=== PATIENT | female | born 1955 | race Caucasian/White ===

== ENCOUNTER 2019-01-18 14:50 | Outpatient (CLI) | payer OTHER, SELFPAY ==
[2019-01-18 15:48] LABS: Hemoglobin A1C 9.5 % (4.5-6.2)
== END 2019-01-18 15:10 ==
PROVIDERS: PCP Neuromusculoskeletal Medicine & OMM; Visit Provider Neuromusculoskeletal Medicine & OMM
DX: E11.9 Type 2 diabetes mellitus without complications (principal)
CPT/HCPCS: 36415; 83036

== ENCOUNTER 2019-12-27 12:57 | Outpatient (CLI) | payer OTHER, SELFPAY ==
[2019-12-27 17:01] LABS: Hemoglobin A1C 11.1 % (3.8-5.6)
== END 2019-12-27 13:17 ==
PROVIDERS: PCP Neuromusculoskeletal Medicine & OMM; Visit Provider Neuromusculoskeletal Medicine & OMM
DX: E11.9 Type 2 diabetes mellitus without complications (principal)
CPT/HCPCS: 36415; 83036

== ENCOUNTER 2023-02-04 16:03 | Outpatient (REF) | payer OTHER, SELFPAY ==
--- NOTE | 2023-02-04 16:20 | PAPFT_PTH ---
PATIENT: Cassandra Vargas LOC: [facility] U#:[id number] AGE/SX: 67/F ROOM: RE02/04/[address]: Beena Saldaña MD : 1955 BED: DIS: 02/04/2023 SPEC #: [id number] RECD: 02/04/23 18:10 STATUS: PATTY REQ #: [id number] COLLIN: 02/04/23 16:[address]: Beena Saldaña DEPT: [facility] Cytology RECD BY: Joselyn Gracia ENTERED: 02/04/23 18:11 SP TYPE: PAPFT OTHR DR: Eric Lao Tissues: 1 - CX/ENDOCX FOR PAP SMEARS Procedures: PAP THIN PREP/UVM Screening HPV DNA PROBE Comments: [id number]
== END 2023-02-04 16:04 | disposition home or self-care (01) ==
LOC: LBN 16:03
PROVIDERS: PCP Neuromusculoskeletal Medicine & OMM; Visit Provider Obstetrics & Gynecology
DX: Z12.4 Encounter for screening for malignant neoplasm of cervix (principal); Z11.51 Encounter for screening for human papillomavirus (HPV)
CPT/HCPCS: 88142; 87624

== ENCOUNTER 2023-02-26 01:16 | Outpatient (CLI) | payer OTHER, SELFPAY ==
--- NOTE | 2023-02-26 13:02 | DI.MAMMO_ITS ---
Exam(s) MAMMO SCREENING EXAM: MAMMO SCREENING CLINICAL HISTORY: screening,z12.39 TECHNIQUE: Mammograms were interpreted according to the usual protocol including computer analysis w [employer] CAD system, tomosynthesis and C-view imaging. COMPARISON: 2012 FINDINGS: The breasts are composed of mainly fatty density , Breast Density category A. No suspicious masses or suspicious microcalcifications are seen. No skin thickening or abnormal axillary lymph nodes are seen. There has been no significant change from prior exams. IMPRESSION: BI-RADS Category 1, Negative mammogram Yearly screening mammography is recommended. Breast Density - Category A, fatty density. A negative radiographic report should not delay biopsy if a dominant or clinically suspicious mass is present. Up to ten percent of cancers are not identified on mammography. A negative report may reinforce clinical impression. Adenosis and dense breasts may obscure an underlying neoplasm. False positive reports average 6 to 10%. Patient will receive a letter notifying them of these results.
== END 2023-02-26 01:36 ==
PROVIDERS: PCP Neuromusculoskeletal Medicine & OMM; Visit Provider Obstetrics & Gynecology
DX: Z12.31 Encounter for screening mammogram for malignant neoplasm of breast (principal)
CPT/HCPCS: 77063; 77067

== ENCOUNTER 2023-07-04 15:06 | Outpatient (REF) | payer OTHER, MEDICARE, SELFPAY | END 2023-07-04 15:07 | disposition home or self-care (01) | LOC: LBN 15:06 | PROVIDERS: PCP Neuromusculoskeletal Medicine & OMM; Visit Provider Obstetrics & Gynecology | DX: N90.89 Other specified noninflammatory disorders of vulva and perineum (principal) | CPT/HCPCS: 87480; 87510; 87660 ==

== ENCOUNTER → 2024-04-28 00:36 | Outpatient (CLI) | payer OTHER, SELFPAY ==
--- NOTE | 2024-04-28 | DI.RAD_ITS ---
Exam(s) XR KNEE RT 4V AP,LAT,BRIANNA,PAT EXAM: XR KNEE RT 4V AP,LAT,BRIANNA,PAT CLINICAL HISTORY: Rt knee pain, M25.561. TECHNIQUE: 2D digital imaging was performed. Three views. COMPARISON: No exams were available for comparison FINDINGS: BONES: No acute fracture is present. No bony destructive lesion is seen. JOINTS: The knee is normally aligned. No joint effusion is seen. Severe narrowing of the lateral pa tellofemoral joint space. periarticular spurring. Femoral tibial joint spaces are maintained and s how mild periarticular spurring.. SOFT TISSUE: Normal. IMPRESSION: Unremarkable advanced degenerative changes of the lateral patellofemoral joint. DATA REPOSITORY: RADIATION DOSE DELIVERED:
== END ==
PROVIDERS: PCP Neuromusculoskeletal Medicine & OMM; Visit Provider Neuromusculoskeletal Medicine & OMM
DX: M25.561 Pain in right knee (principal)
CPT/HCPCS: 73564

== ENCOUNTER 2024-05-13 15:49 | Outpatient (REF) | payer OTHER, SELFPAY ==
--- NOTE | 2024-05-13 15:30 | ENDOMET_PTH ---
PATIENT: Cassandra Vargas LOC: [facility] U#:[id number] AGE/SX: 68/F ROOM: RE05/13/[address]: Jewell Barton DO : 1955 BED: DIS: 05/13/2024 SPEC #: [id number] RECD: 05/13/24 17:25 STATUS: PATTY REQ #: [id number] COLLIN: 05/13/24 15:[address]: Jewell Barton DEPT: Surgical Specimen RECD BY: Joselyn Gracia ENTERED: 05/13/24 17:26 SP TYPE: Endomet OTHR DR: Eric Lao Tissues: 1 - ENDOMETRIUM BX/KATHERINE Procedures: GROSS AND MICRO LEVEL 4 Comments: [id number]
== END 2024-05-13 15:50 | disposition home or self-care (01) ==
LOC: LBN 15:49
PROVIDERS: PCP Neuromusculoskeletal Medicine & OMM; Visit Provider Obstetrics & Gynecology
DX: N95.0 Postmenopausal bleeding (principal)
CPT/HCPCS: 88305

== ENCOUNTER 2024-10-08 00:23 | Outpatient (CLI) | payer BC, SELFPAY ==
--- NOTE | 2024-10-08 12:15 | DI.MAMMO_ITS ---
Exam(s) MAMMO SCREENING EXAM: MAMMO SCREENING CLINICAL HISTORY: screening TECHNIQUE: Bilateral full field digital CC and MLO mammographic images were obtained with 3D tomosyn thesis and utilizing computer aided detection (CAD). COMPARISON: Available for comparison. FINDINGS: Masses/Architectural Distortion: There has been interval increase in size of the nodule seen in the u pper inner quadrant of the right breast. The borders are irregular. It measures 7 mm in maximum melissa meter. No suspicious masses are seen in the left breast. The nodule in the retroareolar region of t he left breast appears stable. Microcalcifications: No suspicious pleomorphic-type are seen. Skin Thickening/Nipple Retraction: None. IMPRESSION: 1. Interval increase in size and irregularity of the nodule in the upper inner quadrant of the right breast. 2. Spot compression views and a right breast ultrasound are requested for further evaluation. BI-RADS Category 0 - Incomplete: Need additional imaging evaluation Breast Density - Category B - Scattered areas of fibroglandular density Breast density category C or D implies that the patient has dense breast tissue. Dense breast tissue is very common and is not abnormal but dense breast tissue can make it harder to find cancer on a ma mmogram. Also, dense breast tissue may increase their breast cancer risk. This information about the result of the mammogram report was provided to the patient to raise their awareness. Use this report when you speak with the patient about their risks for breast cancer, which includes their family hist ory. At that time, you may recommend for more screening tests (Ultrasound or MRI) as they might be us eful based on their risk. A negative radiographic report should not delay biopsy if a dominant or clinically suspicious mass is present. Up to ten percent of cancers are not identified on mammography. A negative report may reinforce clinical impression. Adenosis and dense breasts may obscure an underlying neoplasm. False positive reports average 6 to 10%. Patient will receive a letter notifying them of these results.
== END 2024-10-08 00:43 ==
PROVIDERS: PCP Neuromusculoskeletal Medicine & OMM; Visit Provider Obstetrics & Gynecology
DX: Z12.31 Encounter for screening mammogram for malignant neoplasm of breast (principal); R92.323 Mammographic fibroglandular density, bilateral breasts
CPT/HCPCS: 77063; 77067

== ENCOUNTER 2024-10-18 01:55 | Outpatient (CLI) | payer BC, SELFPAY ==
--- NOTE | 2024-10-18 | DI.MAMMO_ITS ---
Exam(s) MG MAMMO SCREEN CALL BACK UNI US BREAST RT COMPLETE EXAM: MG MAMMO SCREEN CALL BACK UNI RIGHT AND COMPLETE RIGHT BREAST ULTRASOUND CLINICAL HISTORY: F/U ABNL MAMMO, INT INC IRREGULARITY OF NODULE UIQ RT BREAST. TECHNIQUE: Unilateral RIGHT BREAST spot mammographic images obtained with 3D tomosynthesisand utiliz ing computer aided detection (CAD). . Complete RIGHT breast Ultrasound was also performed, including all 4 quadrants, the retroareolar madyson on, and the ipsilateral axilla. COMPARISON: Prior mammograms were reviewed. This additional imaging was performed due to findings described on the recent screening mammogram of 10/08/2024. FINDINGS: DIAGNOSTIC MAMMOGRAM: Additional mammographic views performed todaydo not dissipate this nodule but reveal a notch therein, indicating that it is most probably a benign intramammary lymph node. COMPLETE RIGHT BREAST ULTRASOUND: Ultrasound performed today reveals no evidence of solid or significant cystic lesions in all 4 quadra nts.. This implies that the finding mammogram is most probably benign intramammary lymph node. Scanning of the ipsilateral axilla reveals no significant adenopathy. IMPRESSION: 1. Benign-appearing right breast nodule which is probably a benign intramammary lymph node. 2. Negative complete right breast ultrasound which is further evidence that this is most probably a benign intramammary lymph node. Appropriate follow-up as discussed by myself with the patient today is repeat right breast mammogram in 6 months to ensure stability.. The patient was informed of these findings and recommendations by myself prior to leaving the departm ent today. BI-RADS Category 3 - 6 month - Probably Benign Finding: Recommend follow-up mammography in 6 months Breast Density - Category B - Scattered areas of fibroglandular density Breast density Category C or D implies that the patient has dense breast tissue. Dense breast tissue can make it harder to find cancer on a mammogram. Dense breast tissue is also associated with an incr eased risk of breast cancer. This information about the result of the mammogram report was provided to the patient to raise their awareness. Use this report when you speak with the patient about their risks for breast cancer, which includes their family history. At that time, you may recommend additional screening tests (Ultrasoun d or MRI) as these tests may add significant information. A negative radiographic report should not delay biopsy if a dominant or clinically suspicious mass is present. Up to ten percent of cancers are not identified on mammography. A negative report may reinforce clinical impression. Adenosis and dense breasts may obscure an underlying neoplasm. False positive reports average 6 to 10%. Patient will receive a letter notifying them of these results.
== END 2024-10-18 02:15 ==
PROVIDERS: PCP Neuromusculoskeletal Medicine & OMM; Visit Provider Obstetrics & Gynecology
DX: Z12.31 Encounter for screening mammogram for malignant neoplasm of breast (principal); R92.323 Mammographic fibroglandular density, bilateral breasts; D24.1 Benign neoplasm of right breast
CPT/HCPCS: 76642; 77063; 77067

== ENCOUNTER 2025-04-15 12:57 | Outpatient (CLI) | payer BC, SELFPAY ==
--- NOTE | 2025-04-15 13:16 | DI.RAD_ITS ---
Exam(s) XR RIBS RT W PA LAT CHEST CLINICAL HISTORY: PLEURODYNIA R07.81 FALL W19.XXXA TRAUMATIC FALL RT RIB PAIN RIBS 4-8 R/O FX. COMPARISON: No exams were available for comparison TECHNIQUE:: PA and lateral views of the chest and four views of the right ribs were performed. FINDINGS: LUNGS:Clear. No pleural abnormality seen. HEART: Normal size. MEDIASTINUM: Normal. BONES: No displaced rib fracture is seen. No bony destructive lesion is seen. IMPRESSION: 1. Unremarkable radiographic appearance of the right ribs. 2. No acute pulmonary findings.
== END 2025-04-15 13:17 ==
PROVIDERS: PCP Neuromusculoskeletal Medicine & OMM; Visit Provider Neuromusculoskeletal Medicine & OMM
DX: R07.81 Pleurodynia (principal); W19.XXXA Unspecified fall, initial encounter
CPT/HCPCS: 71046; 71100

== ENCOUNTER 2025-04-25 03:00 | Outpatient (CLI) | payer BC, SELFPAY ==
--- NOTE | 2025-04-25 | DI.US_ITS ---
Exam(s) MG MAMMO DIAGNOSTIC UNI US BREAST RT COMPLETE EXAM: MG MAMMO DIAGNOSTIC UNI RIGHT AND COMPLETE RIGHT BREAST ULTRA CLINICAL HISTORY: 6 mo f/u, abnl mammo rt breast, R92.8,? benign intramammary lymph node. TECHNIQUE: Unilateral RIGHT BREAST CC AND MLO AND SPOT mammographic images were obtained with 3D tomosynthesis technique and utilizing computer aided detection (CAD). COMPLETE RIGHT BREAST ULTRASOUND performed including all 4 quadrants as well as the axillary region. COMPARISON: Prior mammograms were reviewed, the most recent being September 2024. Prior ultrasound at that time was also reviewed.. FINDINGS: The previously described small nodule in the upper inner quadrant of the right breast exhibits minimal if any significant change in size when compared to the September 2024 mammogram. There are no new additional right breast nodules and there are no malignant-appearing microcalcification groups in the right breast. There is no new architectural distortion or skin thickening-retraction. COMPLETE RIGHT BREAST ULTRASOUND: At the 12 o'clock position there is a 3 millimeter finding which is probably small hemorrhagic cyst. At the 1 o'clock position there is a slightly lobulated nodule which measures 7 x 5 mm and most probably corresponds to the finding on the mammogram. This does not have the appearance of a typical benign intramammary lymph node. Biopsy recommended. There are no other focal ultrasound findings in all 4 quadrants. Scanning of the right axilla is negative for significant adenopathy. IMPRESSION: There is a 7 x 5 mm nodule at the 1 o'clock position of the right breast seen on ultrasound which corresponds to the finding on the mammogram. This does not have the appearance of a in obvious benign intramammary lymph node. Therefore ultrasound-guided core biopsy is recommended. There is a 2nd smaller nodules seen only on the ultrasound at the 12 o'clock position measuring 3 mm which is probably a small hemorrhagic cyst. This is not seen on the mammogram. The patient was informed of the findings and follow-up recommendations by myself prior to leaving the department today. Report and recommendations called by myself to Dr. Duarte 04/25/2025 at 10:40 a.m.. BI-RADS Category 4 - Suspicious Abnormality: Biopsy should be considered Breast Density - Category B - There are scattered areas of fibroglandular density. Breast density Category C or D implies that the patient has dense breast tissue. Dense breast tissue can make it harder to find cancer on a mammogram. Dense breast tissue is also associated with an increased risk of breast cancer. This information about the result of the mammogram report was provided to the patient to raise their awareness. Use this report when you speak with the patient about their risks for breast cancer, which includes their family history. At that time, you may recommend additional screening tests (Ultrasound or MRI) as these tests may add significant information. A negative radiographic report should not delay biopsy if a dominant or clinically suspicious mass is present. Up to ten percent of cancers are not identified on mammography. A negative report may reinforce clinical impression. Adenosis and dense breasts may obscure an underlying neoplasm. False positive reports average 6 to 10%. Patient will receive a letter notifying them of these results.
== END 2025-04-25 03:20 ==
PROVIDERS: PCP Neuromusculoskeletal Medicine & OMM; Visit Provider Obstetrics & Gynecology
DX: R92.8 Other abnormal and inconclusive findings on diagnostic imaging of breast (principal); Z12.31 Encounter for screening mammogram for malignant neoplasm of breast
CPT/HCPCS: 76642; 77061; 77065; G0279

== ENCOUNTER 2025-04-29 10:00 | Outpatient (CLI) | payer BC, SELFPAY ==
--- NOTE | 2025-04-29 11:30 | DI.MAMMO_ITS ---
Exam(s) MG MAMMO DIAGNOSTIC UNI EXAM: MG MAMMO DIAGNOSTIC UNI-RIGHT CLINICAL HISTORY: post bx marker placement in office,confirm placement, abnl mammo. TECHNIQUE: Unilateral RIGHT BREAST CC AND MLO mammographic images were obtained with 3D tomosynthesis technique and utilizing computer aided detection (CAD). COMPARISON: Prior mammograms were reviewed Prior ultrasound examinations also reviewed, most recent being 04/25/2025. FINDINGS: There has been interval ultrasound-guided biopsy of the nodule to 1 o'clock position of the right breast. This patient was sent for verification of biopsy marker position. Indeed, the biopsy marker device is located immediately adjacent to the described nodule on the mammogram. IMPRESSION: As above. Awaiting core biopsy pathology report BI-RADS Category 4 - Suspicious Abnormality: Biopsy report in progress Breast Density - Category B - There are scattered areas of fibroglandular density. Breast density Category C or D implies that the patient has dense breast tissue. Dense breast tissue can make it harder to find cancer on a mammogram. Dense breast tissue is also associated with an increased risk of breast cancer. This information about the result of the mammogram report was provided to the patient to raise their awareness. Use this report when you speak with the patient about their risks for breast cancer, which includes their family history. At that time, you may recommend additional screening tests (Ultrasound or MRI) as these tests may add significant information. A negative radiographic report should not delay biopsy if a dominant or clinically suspicious mass is present. Up to ten percent of cancers are not identified on mammography. A negative report may reinforce clinical impression. Adenosis and dense breasts may obscure an underlying neoplasm. False positive reports average 6 to 10%. Patient will receive a letter notifying them of these results.
== END 2025-04-29 10:20 ==
LOC: DI 10:00
PROVIDERS: PCP Neuromusculoskeletal Medicine & OMM; Visit Provider Surgery
DX: R92.8 Other abnormal and inconclusive findings on diagnostic imaging of breast (principal); Z12.31 Encounter for screening mammogram for malignant neoplasm of breast
CPT/HCPCS: 76642; 77061; 77065; G0279

== ENCOUNTER 2025-04-29 10:27 | Outpatient (REF) | payer BC, SELFPAY ==
--- NOTE | 2025-04-29 10:20 | BREAST_PTH ---
PATIENT: Cassandra Vargas LOC: [facility] U#:[id number] AGE/SX: 69/F ROOM: RE04/29/[address]: Margarette Goldstein MD : 1955 BED: DIS: 04/29/2025 SPEC #: [id number] RECD: 04/29/25 12:51 STATUS: KASEYSacha REKali #: [id number] COLLIN: 04/29/25 10:[address]: Margarette Goldstein DEPT: Surgical Specimen RECD BY: Joselyn Gracia ENTERED: 04/29/25 12:53 SP TYPE: Breast OTHR DR: Eric Lao Tissues: 1 - BREAST BX NEEDLE Procedures: GROSS AND MICRO LEVEL 4 MIB-1 IHC Semi Quantative % [id number] IPEX ESTROGEN/PROGESTERONE RECEPTOR IPEX STAIN Comments: [id number]
== END 2025-04-29 10:28 | disposition home or self-care (01) ==
LOC: LBN 10:27
PROVIDERS: PCP Neuromusculoskeletal Medicine & OMM; Referring Provider Surgery; Visit Provider Surgery
DX: C50.211 Malignant neoplasm of upper-inner quadrant of right female breast (principal)
CPT/HCPCS: 88305; 88360

== ENCOUNTER 2025-05-13 08:59 | Outpatient (CLI) | payer BC, SELFPAY ==
[2025-05-13 13:42] LABS: Abs Immature Grans 0.01 10^3/uL (0.0-0.06); HCT 44.7 % (36.0-46.0); HGB 15.4 g/dL (11.2-15.7); Immature Grans % 0.1 %; MCH 30.3 pg (27.0-33.0); MCHC 34.5 % (32.0-36.0); MCV 88 fL (80-95); MPV 9.9 fL (8.0-11.0); Platelet Count 225 10^3/uL (130-400); RBC 5.08 10^6/uL (3.93-5.22); RDW 13.1 % (11.7-14.6); RDW-SD 41.8 fL; WBC 9.49 10^3/uL (4.4-10.8)
[2025-05-13 13:54] LABS: Hemoglobin A1C 10.8 % (<5.7)
[2025-05-13 14:41] LABS: ALT 37 U/L (14-59); AST 20 U/L (15-37); Albumin 3.9 g/dL (3.4-5.0); Alkaline Phosphatase 76 U/L (46-116); Anion Gap 9.3 mmol/L (3-11); BUN 19 mg/dL (7-18); Bilirubin, Total 0.6 mg/dL (0.2-1.0); CO2 25.7 mmol/L (21.0-32.0); Calcium 9.3 mg/dL (8.5-10.1); Chloride 103 mmol/L (98-107); Estimated GFR 98.32 (mL/min/1.73m2); Glucose 229 mg/dL (74-106); Potassium 4.0 mmol/L (3.5-5.1); Sodium 138 mmol/L (136-145); Total Protein 7.6 g/dL (6.4-8.2)
== END 2025-05-13 09:00 | disposition home or self-care (01) ==
PROVIDERS: PCP Nurse Practitioner Family; Visit Provider Surgery
DX: Z19.1 Hormone sensitive malignancy status (principal); Z13.0 Encounter for screening for diseases of the blood and blood-forming organs and certain disorders involving the immune mechanism
CPT/HCPCS: 36415; 80053; 83036; 85025

== ENCOUNTER 2025-07-04 06:20 | Day surgery (SDC) | payer BC, SELFPAY ==
[2025-07-04] VITALS (25 sets, daily range): BP systolic 102–140; BP diastolic 40–71; PULSE 62–89; RESP 12–23; TEMP 36.1–36.7; O2SAT 94–99; BMI 39.7
--- NOTE | 2025-07-04 06:45 | DI.NM_ITS ---
Exam(s) NM SENTNODE INJ ONLY EXAM: NM SENTNODE INJ ONLY CLINICAL HISTORY: rt breast lumpectomy surgery,ductal ca rt breast,c50.911. TECHNIQUE: Injected Dose: 1 mCi Tc-99m filtered sulfur colloid. COMPARISON: No exams were available for comparison FINDINGS: 1 mCi of sulfur colloid injection in the periareolar region of the right breast. No images were obtained. IMPRESSION: 1. Right breast sentinel node injection. There are no images. DATA REPOSITORY:
[2025-07-04] MEDS: Lactated Ringers 1,000 ML 80 ML IV (09:04)
--- NOTE | 2025-07-04 09:09 | W.ANESPRE ---
General Info Date of Service Date Performed: 07/04/25 Height: 5 ft 5.5 in Weight: 110.1 kg Body Mass Index (BMI): 39.7 Surgical Procedure: Operation Date: 07/04/25 08:55 Proposed Procedure Side Surgeon p Right lumpectomy with sentinel lymph node bx Right Margarette Goldstein MD Meds Allergies and Home Medications Allergies Allergy/AdvReac Type Severity Reaction Status Date / Time codeine Allergy Severe severe Verified 07/04/25 06:44 vomiting and hive latex Allergy Severe swelling Verified 07/04/25 06:44 Sulfa (Sulfonamide Allergy Severe hives Verified 07/04/25 06:44 Antibiotics) ibuprofen Allergy Intermediate Skin Rash Verified 07/04/25 06:44 Home Medication ?Medication ?Instructions ?Recorded cholecalciferol (vitamin D3) 25 1,000 unit PO DAILY 04/09/13 mcg (1,000 unit) capsule solifenacin 5 mg tablet (Vesicare) 5 mg PO DAILY 05/13/25 semaglutide 2 mg/dose (8 mg/3 mL) 2 mg (0.75 mL) subcut QWEEK #3 mL 05/30/25 subcutaneous pen injector (Ozempic) hydrocodone 5 mg-acetaminophen 325 1 tab PO Q6H PRN pain #10 tabs 07/04/25 mg tablet Current Visit Medications: Current Medications Generic Name Dose Route Start Last Admin Trade Name Freq PRN Reason Stop Dose Admin Ringer's Solution 1,000 mls @ 80 mls/hr 07/04/25 06:00 07/04/25 09:04 IV 07/04/25 23:59 80 mls/hr INFUSION KALI Administration Cefazolin Sodium/Dextrose 2 gm in 50 mls @ 100 mls/hr 07/04/25 06:00 Ancef Duplex IVPB 07/04/25 23:59 PREOP KALI IV Miscellaneous Supplies 1 each 07/04/25 06:00 Iv Access IV 07/04/25 23:59 DIRECTED KALI Sodium Chloride 0 ml 07/04/25 06:00 Normal Saline Flush 10 Ml Syr IV 07/04/25 23:59 PRN PRN Sodium Chloride 0 ml 07/04/25 06:00 Normal Saline 10 Ml Vial IJ 07/04/25 23:59 DIRECTED PRN Sterile Water 0 ml 07/04/25 06:00 Water,Injection,Sterile 10 Ml Vial IJ 07/04/25 23:59 DIRECTED PRN PFSH Active Problems Active Problems: Problem Status Onset Code 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 Uterus intact. Morbid obesity Surgical History Surgical History H/O hernia repair H/O section Bilateral salpingectomy with oophorectomy Tobacco Smoking/Tobacco Use Status: Never Passive smoking exposure: No Alcohol Alcohol Intake: never Substance Use Substance use: Never Substance use type: does not use Prental History History 4 Para 3 Hx # Term Pregnancies 3 Multiple births Hx # Pregnancies Ectopic pregnancies AB induced 1 Hx Number of Living Children AB spontaneous Past Pregnancies Del. Date GA/Weeks # Preg Succ Route Wgt Sex Labor Lgth Anesthesia Location Prov Complic 05/05/88 43 Yes Female [facility] 09/12/92 40 Male [facility] 03/09/97 38 Female [facility] Delivery Date: 05/05/88 Last Updated by: Arabella Freedman Delivery Date: 09/12/92 Last Updated by: Arabella Hendricks Delivery Date: 03/09/97 Last Updated by: Arabella Savage Vital Signs and Lab Results Vital Signs Most Recent Vital Signs in EMR: Most Recent Vital Signs Temp Pulse Resp BP Pulse Ox 36.6 C 78 17 139/60 99 07/04/25 06:35 07/04/25 06:35 07/04/25 06:35 07/04/25 06:35 07/04/25 06:35 Point of Care Results Point of Care Results: Finger Stick Blood Glucose 237 07/04/25 08:50 Anesthesia Assessment and Plan Anesthesia History Personal History: No History of Anesthesia Complications Family History: No Family History of Anesthesia Complications Exercise Tolerance Exercise Tolerance: Metabolic Equivalents>4 Pertinent Negatives Pertinent Negatives: No Symptoms of GERD, No Major Cardiovascular Symptoms or Complaints, No Major Pulmonary Symptoms or Complaints and No History of CVA/TIA Cardiac & Pulmonary Exam Cardiac Exam: Normal S1/S2 Heart Sounds Pulmonary Exam: Clear Bilateral Breath Sounds Implantable Cardiac Device Does patient have a Pacemaker or an ICD?: No Airway Exam Known Difficult Airway: No Mallampati Class: 1 Mouth Opening: Normal (> 3cm) Thyromental Distance: Greater than 3 cm Neck Range of Motion: Full ROM Neck Circumference: Normal Teeth Condition: Normal Dentition ASA Classification ASA Score: ASA 3 Emergency Case?: No NPO Status NPO Status: NPO Clears >2 hours, Solids >8 hours and NPO Small Non-Fatty Meal >6 hours Anesthesia Plan Resuscitation Status: Full Code Anesthesia Technique: General Anesthesia Airway Planned: Endotracheal Tube Monitors Used: Standard Monitors
--- NOTE | 2025-07-04 09:39 | W.PM.DSUDISC ---
Date of service: 07/04/25 Discharge Plan Disposition Patient Disposition: Home Condition: Stable Discharge Details Attending Provider: Margarette Goldstein Primary Care Provider: Tatyana Flores Recommendations for Follow Up Recommended tests to be ordered by follow up provider: Ensure blood glucose control remains adequate with goal glucose under 200 at all times post operatively. Home Meds and New Rx's Prescriptions: New hydrocodone-acetaminophen 5-325 mg tablet 1 tab PO Q6H PRN (Reason: pain) Qty: 10 0RF Continued solifenacin [Vesicare] 5 mg tablet 5 mg PO DAILY cholecalciferol (vitamin D3) 1,000 UNIT capsule 1,000 unit PO DAILY Ozempic 2 mg/dose (8 mg/3 mL) pen injector 2 mg subcut QWEEK Qty: 3 3RF Discharge Instructions Additional Instructions: Shower 07/06/2025. Wash gently over steristrips and skin glue with soapy hands, rinse, pat dry. Dont peel strips or glue off of your incisions. Do not clean the strips or incisions with solvents like alcohol or hyrogen peroxide. Do not apply lotions or ointments to your incisions. Bruising, spot bleeding and feeling a lump at each surgical site is normal and expected and temporary. Wear a bra for comfort and support. No activity restrictions. You may use your arm for normal daily activities. Do not allow blood draws, needle sticks, or blood pressure measurements in the right arm. This may lead to swelling in the arm after lymph node biopsy. Resume all of your home medications including your semaglutide (ozempic). Resume tight blood glucose control and reach out to the office if you are seeing blood sugars consistently over 200. Call or return for fever or incisional problems. After hours or on weekends, call the answering service to reach a surgeon. Follow up appointment is scheduled 07/20/2025 at 2:30pm. Activity:: as written in instructions. Remove Dressings/Wound Care:: 48 hours Shower/Bathe:: 48 hours Diet:: As Tolerated Discharge Orders Discharge Orders: Discharge Order (Routine); Ordered 07/04/25 Ordered By: Margarette Goldstein DS: Diagnosis Discharge Diagnosis (1) Cancer of right breast: Status: Acute (2) Diabetes mellitus due to underlying condition, uncontrolled, with hyperglycemia: Status: Acute
[2025-07-04] MEDS: ceFAZolin 2 GM/50 ML BAG IVPB (10:00)
--- NOTE | 2025-07-04 10:05 | ROE_ITS ---
Operative Note Operative Note PRE-OP DIAGNOSIS: Right breast cancer POST-OP DIAGNOSIS: same (right breast cancer) PROCEDURE: 1. Ultrasound guided right breast lumpectomy. 2. injection of technitium sulfur colloid and methylene blue for sentinel lymph node biopsy. 3. right axillary sentinel lymph node biopsy SURGEON: Margarette Goldstein SCRAP STRIPPER HAND: Brittni Mckeon ANESTHESIA TYPE: Local By Surgeon and General LMA/ETT Refer to Anesthesia Record PATHOLOGY: other (1. right breast cancer (long stitch lateral, short superior, double anterior). 2. ) Indications: 69yo F with hormone sensitive right breast cancer and a clinically negative axilla. No indications for neoadjuvent chemotherapy were identified so we proceeded with surgical management of the breast. Lumpectomy + sentinel lymph node biopsy folowed by radiation therapy was selected for treatment. Today we proceed with lumpectomy and sentinel lymph node biopsy. The breast cancer is not palpable, but it is clipped and visible sonographically at 1:00 position in the right upper inner breast, 7cm from the nipple. The mass size is 5-6mm after biopsy. Ultrasound guidance planned for lumpectomy. Procedure Description: Informed consent was obtained after complete discussion of the procedure risks and benefits and alternatives and expectations. On the day of surgery 1 mCi of sulfur colloid was injected in the periareolar region of the right breast by me. No complications or skin reactions. The patient was then taken to the operating room. In the operating room she was placed supine on the operating table. SCDs were placed and all pressure points were padded appropriately. General anesthesia was induced. Timeout was performed. 4mL of a 1:4 mixture of methylene blue to normal saline was injected in the subdermal lymphatics in the perioareolar right breast. The right breast and axilla were prepped and draped in the usual sterile fashion. US guidance was used to identify the location of the breast cancer in the 1 o'clock position of the breast, 7 cm from the nipple. The cancer was easily identified in its location confirmed. The skin was marked with the planned incision and excision margins. Skin incision was completed after the skin was anesthetized. Dissection down to the breast tissue was done with cautery. A lump of breast tissue was removed from the right breast around the known location of the breast cancer. This was done with cautery. The lumpectomy was taken down to the level of the pectoralis fascia. The lump was removed from the breast with cautery and marked with orienting sutures. Cold ischemic time was annotated. 3 hemoclips were placed within the lumpectomy cavity to mariluz the location of the cancer for radiation and future mammogram. The subcutaneous tissues were reapproximated to close the cavity and bring the skin edges together. This was done with interrupted 3-0 Vicryl sutures. The skin was then closed with 4-0 Monocryl suture in a running subcuticular fashion. Attention was then turned to the sentinel lymph node biopsy. The radiotracer uptake was noted to be high in the lower axilla. An incision was completed at the lower border of the hairline after anesthetizing the skin. Dissection down to the axilla was done with cautery. Blue dye was seen in lymphatic vessels but no clearly blue lymph nodes were identified. Radiotracer was followed with the neoprobe and 2 sentinel lymph nodes were identified in the axilla. These were dissected free using a LigaSure device and clips and removed. 10-second count on the first lymph node was 2800 range. 10-second count on the second lymph node was 252. The axilla was examined for hemostasis. The subcutaneous tissues were reapproximated to close the cavity and bring the skin edges together. This was done with interrupted 3-0 Vicryl sutures. The skin was then closed with 4-0 Monocryl suture in a running subcuticular fashion. The incisions were washed and dried. Steri-Strips were placed over the lumpectomy incision and skin glue was placed in the axilla. A pedunculated skin tag at the location of the axillary incision necessitated its removal. The skin was anesthetized under the 2 mm x 6 mm skin tag. Metzenbaum scissors were used to amputated and the tag was discarded. The excision point was cauterized to ensure it did not bleed under the skin glue this was done prior to skin glue application. All sponge and instrument counts were correct at the end of the case. The patient tolerated the procedure well. She extubated in the operating room and transferred to the recovery room in stable condition. There were no complications Date of Procedure: 07/04/25 POCUS Surgery Limited Soft Tissue Exam DATE OF EXAM: 07/04/25 PROVIDER THAT PERFORMED THE STUDY: Margarette Goldstein IS THIS A REPEAT EXAM DURING THIS ENCOUNTER: No LOCATION OF EXAM: Breast/right (right breast, 1:00 position, 7cm from nipple. ) REASON FOR EXAM: Other indication: localization of the known right breast cancer for lumpectomy operation. PERTINENT FINDINGS/IMPRESSION: Other impression: 6-7mm irregular, taller than wide hypoechoic lesion with hyperechoic clip below it. Confirmed location, depth and appearance of known right breast cancer. Site marked for lumpectomy. . Exam Complete DIFFERENTIAL DIAGNOSES: Known right breast cancer.
--- NOTE | 2025-07-04 11:12 | BREAST_PTH ---
PATIENT: Cassandra Vargas LOC: [facility] U#:[id number] AGE/SX: 69/F ROOM: RE07/04/[address]: Margarette Goldstein MD : 1955 BED: DIS: 07/04/2025 SPEC #: [id number] RECD: 07/05/25 12:01 STATUS: PATTY CRISTA #: [id number] COLLIN: 07/04/25 11:[address]: Margarette Goldstein DEPT: Surgical Specimen RECD BY: Joselyn Gracia ENTERED: 07/05/25 12:04 SP TYPE: Breast OTHR DR: Tatyana Flores Tissues: 1 - BREAST INCISION/EXCISION 2 - LYMPH NODE BIOPSY Procedures: GROSS AND MICRO LEVEL 5 Comments: [id number] (BOTH SPECIMENS RADIOACTIVE)
[2025-07-04] MEDS: Bupivacaine 0.5% Pres-Free W/EPI 30 ML VIAL (11:31)
[2025-07-04] MEDS: Normal Saline 10 ML VIAL (11:31)
[2025-07-04] MEDS: fentaNYL 100 MCG/2 ML VIAL IVP ×2 (12:33→12:49)
--- NOTE | 2025-07-04 14:01 | W.ANESPOSTOP ---
Postoperative Evaluation Date, Time and Location Date Performed: 07/04/25 Time Performed: 14:01 Patient Location: Day Surgery Unit Vital Signs Most Recent Imported Vital Signs: Most Recent Vital Signs Temp Pulse Resp BP Pulse Ox 36.4 C L 62 17 132/59 L 98 07/04/25 13:46 07/04/25 13:46 07/04/25 13:46 07/04/25 13:46 07/04/25 13:46 Pain Score Most Recent Pain Score: Most Recent Pain Score Pain Level 7 07/04/25 13:46 Assessment Mental Status: Awake (Alert & Oriented to Patient Baseline) Airway and Respiratory Function: Patent airway with normal (patient baseline) respiratory exam Cardiovascular Function: Hemodynamically Stable Hydration Status: Adequately Hydrated Nausea & Vomiting: No Nausea or Vomiting Pain: Pain is Moderate or Severe Postoperative Pain Management: Pain being addressed with medication Peripheral Nerve Block: Patient did not receive a nerve block
== END 2025-07-04 14:55 | disposition home or self-care (01) ==
PROVIDERS: PCP Nurse Practitioner Family; Visit Provider Surgery
PROC: (CPT 38525; principal; 2025-07-04 08:45)
DX: C50.211 Malignant neoplasm of upper-inner quadrant of right female breast (principal); E08.65 Diabetes mellitus due to underlying condition with hyperglycemia
CPT/HCPCS: 38525; 19301; 38792; 76642; 88305; A9541; 88307; J0131; J0690; J1100; J2003; J2405; J2704; J3010; J3475; Q9968

== ENCOUNTER 2025-07-18 11:15 | Day surgery (SDC) | payer BC, SELFPAY ==
[2025-07-18] VITALS (22 sets, daily range): BP systolic 83–133; BP diastolic 33–78; PULSE 60–82; RESP 9–22; TEMP 36–36.6; O2SAT 94–100; BMI 40.1
--- NOTE | 2025-07-18 11:26 | PDOC.DSDIS_ITS ---
Date of service: 07/18/25 Discharge Plan Disposition Patient Disposition: Home Condition: Stable Discharge Details Attending Provider: Margarette Goldstein Primary Care Provider: Tatyana Flores Recommendations for Follow Up Recommended tests to be ordered by follow up provider: Manage blood glucose/hyperglycemia to maintain levels <200 in recovery period. Home Meds and New Rx's Prescriptions: New hydrocodone-acetaminophen 5-325 mg tablet 1 tab PO Q6H PRNQty: 10 0RF doxycycline hyclate 100 mg capsule 100 mg PO BID Qty: 14 0RF Continued solifenacin [Vesicare] 5 mg tablet 5 mg PO DAILY cholecalciferol (vitamin D3) 1,000 UNIT capsule 1,000 unit PO DAILY Ozempic 2 mg/dose (8 mg/3 mL) pen injector 2 mg subcut QWEEK Qty: 3 3RF Discharge Instructions Additional Instructions: Shower 07/20/2025. Wash gently over steristrips with soapy hands, rinse, pat dry. Dont peel strips of your incision. Do not clean the strips with solvents like alcohol or hyrogen peroxide. Do not apply lotions or ointments to your incisions. Bruising, spot bleeding and feeling a lump at each surgical site is normal and expected and temporary. Wear a bra for comfort and support. No activity restrictions. You may use your arm for normal daily activities. Do not allow blood draws, needle sticks, or blood pressure measurements in the right arm. This may lead to swelling in the arm. Resume all of your home medications including your semaglutide (ozempic). Resume tight blood glucose control and reach out to the office and to your PCP if you are seeing blood sugars consistently over 200. Call or return for fever or incisional problems. After hours or on weekends, call the answering service to reach a surgeon. I am giving you an antibiotic to protect against infection. Pick it up from the pharmacy and start taking it tonight. You do not need to picking belt operator and pay for the hydrocodone prescription if you dont need additional pain medication for this recovery. Shower/Bathe:: 48 hours Discharge Orders Discharge Orders: Discharge Order (Routine); Ordered 07/18/25 Ordered By: Margarette Goldstein DS: Diagnosis Discharge Diagnosis (1) Ductal carcinoma of right breast: Status: Acute (2) Ductal carcinoma in situ (DCIS) of right breast: Status: Acute
[2025-07-18] MEDS: Lactated Ringers 1,000 ML 80 ML IV (12:18)
--- NOTE | 2025-07-18 12:24 | HPE_ITS ---
Date of service: 07/18/25 Time of Service: 12:24 Assessment and Plan Assessment and plan (1) Ductal carcinoma of right breast: Status: Acute Assessment and plan: Proceed with margin reexcision in the right breast lumpectomy cavity. We discussed that additional margins may be required to achieve complete excision of the cancer and the extensive DCIS component. We discussed the challenges to wound healing with repeat surgery especially in the setting of hyperglycemia with uncontrolled diabetes mellitus. She was encouraged to contact her primary care physician as well as my office if her blood glucose levels could not be maintained below 200 consistently in the postoperative recovery time. We discussed the procedure risks and benefits alternatives and expectations. There are no good alternatives, for complete breast cancer care margins need to be negative prior to radiation. (2) Malignant neoplasm with hormone sensitive status: Status: Acute (3) Cancer of right breast: Status: Acute (4) Diabetes mellitus due to underlying condition, uncontrolled, with hyperglycemia: Status: Acute Assessment and plan: She takes semaglutide for glucose control. She has had to hold this for surgery. She has not been off of it for 2 whole weeks, so we discussed the risk of aspiration due to that medication. Postoperatively she should resume her medication regimen and contact me and her PCP if her blood glucose levels could not be maintained below 200 History of Present Illness History of Present Illness Chief Complaint: margin reexcision R breast Narrative: 69yo female with known right breast cancer. She underwent lumpectomy and sentinel lymph node biopsy 2 weeks ago. The sentinel lymph node was negative, however there was focal positive margin superiorly and inferiorly. DCIS and invasive cancer focally positive on the margins. The DCIS was not identified on her core needle biopsy and was identified as a 3.5 cm segment in the final pathology from the lumpectomy. Reexcision of the lumpectomy cavity margins for a complete negative margin is indicated before she undergoes radiation. She is healing well from her lumpectomy and has no current concerns. [facility] All Active Problems Malignant neoplasm with hormone sensitive status (Acute) Ductal carcinoma of right breast (Acute) Diabetes mellitus due to underlying condition, uncontrolled, with hyperglycemia (Acute) Cancer of right breast (Acute) Mass of upper inner quadrant of right breast (Acute) Abnormal ultrasound of breast (Acute) Abnormal mammogram of right breast (Acute) Spot compression and ultrasound of the right breast ordered 09/2024. Repeat diagnostic mammography scheduled 03/2025. Postmenopausal bleeding (Acute) Mixed incontinence (Acute) Multiple sclerosis (Chronic) Medical History Mass of upper outer quadrant of right breast Other specified counseling Seizure disorder Per pt. states this was 23 years ago, and has not had once since pt. states disability aide to her diagnosis of MS Mucinous cystadenoma of ovary Removed at [facility]. Uterus intact. Morbid obesity Surgical History H/O lumpectomy (~07/04/25) R breast H/O hernia repair H/O section x3 Bilateral salpingectomy with oophorectomy Family History Mother Hypertension Hyperlipidemia Other Diabetes Stroke Social History Smoking/Tobacco Use Status: Never Smoking risk assessment performed?: Yes Alcohol Intake: never Drug use: Never Substance use type: does not use Housing: house Number of Children: 3 Do you feel safe at home: Yes Do you feel safe in your relationship?: Yes Female Reproductive History Menstrual Age of Menarche: 16 control method: permanent sterilization History History 4 Para 3 Hx # Term Pregnancies 3 Multiple births Hx # Pregnancies Ectopic pregnancies AB induced 1 Hx Number of Living Children AB spontaneous Past Pregnancies Del. Date GA/Weeks # Preg Succ Route Wgt Sex Labor Lgth Anesth esia Location [facility] 05/05/88 43 Yes Female [facility] 09/12/92 40 Male [facility] 03/09/97 38 Female [facility] Delivery Date: 05/05/88 Last Updated by: Arabella Freedman Delivery Date: 09/12/92 Last Updated by: Arabella Hendricks Delivery Date: 03/09/97 Last Updated by: Arabella Savage Meds Allergies and Home Medications Allergies Allergy/AdvReac Type Severity Reaction Status Date / Time codeine Allergy Severe severe Verified 07/18/25 12:05 vomiting and hive latex Allergy Severe swelling Verified 07/18/25 12:05 Sulfa (Sulfonamide Allergy Severe hives Verified 07/18/25 12:05 Antibiotics) ibuprofen Allergy Intermediate Skin Rash Verified 07/18/25 12:05 Home Medications ?Medication ?Instructions ?Recorded ?Confirmed ?Type cholecalciferol (vitamin D3) 25 1,000 unit PO DAILY 07/18/25 History mcg (1,000 unit) capsule solifenacin 5 mg tablet (Vesicare) 5 mg PO DAILY 05/1307/18/25 History semaglutide 2 mg/dose (8 mg/3 mL) 2 mg (0.75 mL) subcu t QWEEK #3 mL 05/30/25 07/18/25 Rx subcutaneous pen injector (Ozempic) hydrocodone 5 mg-acetaminophen 325 1 tab PO Q6H PRN #1 0 tabs 07/18/25 Rx mg tablet Exam Narrative Exam Narrative: Right breast incision and axillary incisions are healing well. There is no evidence of infection. Palpable healing lump in lumpectomy cavity are intact. awake, NAD eomi, MMM midline trachea, neck is symmetric PULM: normal resp effort, equal chest rise with respiration, no wheezing audible CARDIAC: normal PMI, no jvd, regular rate, normal perfusion abdomen is nondistended. extremities are without deformity, normal movement of all four extremities speech is clear and coherent mood and affect are congruent, no focal neurological deficits skin without rash Results Last Vital Signs Temp 97.7 F 07/18/25 11:45 Pulse 78 07/18/25 11:45 Resp 18 07/18/25 11:45 BP 133/78 07/18/25 11:45 Pulse Ox 99 07/18/25 11:45 Time Spent Time spent with Patient: <40 minutes Time was spent: preparing to see the patient(eg.review tests), counseling the patient and care coordination
--- NOTE | 2025-07-18 12:26 | W.ANESPRE ---
General Info Date of Service Date Performed: 07/18/25 Height: 5 ft 5 in Weight: 109.5 kg Body Mass Index (BMI): 40.1 Surgical Procedure: Operation Date: 07/18/25 12:40 Proposed Procedure Side Surgeon p Re-Excision Breast Cancer Margin Margarette Goldstein MD Meds Allergies and Home Medications Allergies Allergy/AdvReac Type Severity Reaction Status Date / Time codeine Allergy Severe severe Verified 07/18/25 12:05 vomiting and hive latex Allergy Severe swelling Verified 07/18/25 12:05 Sulfa (Sulfonamide Allergy Severe hives Verified 07/18/25 12:05 Antibiotics) ibuprofen Allergy Intermediate Skin Rash Verified 07/18/25 12:05 Home Medication ?Medication ?Instructions ?Recorded cholecalciferol (vitamin D3) 25 1,000 unit PO DAILY 04/09/13 mcg (1,000 unit) capsule solifenacin 5 mg tablet (Vesicare) 5 mg PO DAILY 05/13/25 semaglutide 2 mg/dose (8 mg/3 mL) 2 mg (0.75 mL) subcut QWEEK #3 mL 05/30/25 subcutaneous pen injector (Ozempic) hydrocodone 5 mg-acetaminophen 325 1 tab PO Q6H PRN #10 tabs 07/18/25 mg tablet Current Visit Medications: Current Medications Generic Name Dose Route Start Last Admin Trade Name Freq PRN Reason Stop Dose Admin Ringer's Solution 1,000 mls @ 80 mls/hr 07/18/25 06:00 07/18/25 12:18 IV 07/18/25 23:59 80 mls/hr INFUSION KALI Administration IV Miscellaneous Supplies 1 each 07/18/25 06:00 Iv Access IV 07/18/25 23:59 DIRECTED KALI Sodium Chloride 0 ml 07/18/25 06:00 Normal Saline Flush 10 Ml Syr IV 07/18/25 23:59 PRN PRN Sodium Chloride 0 ml 07/18/25 06:00 Normal Saline 10 Ml Vial IJ 07/18/25 23:59 DIRECTED PRN Sterile Water 0 ml 07/18/25 06:00 Water,Injection,Sterile 10 Ml Vial IJ 07/18/25 23:59 DIRECTED PRN PFSH Active Problems Active Problems: Problem Status Onset Code 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 Uterus intact. Morbid obesity Surgical History Surgical History H/O lumpectomy (~07/04/25) R breast H/O hernia repair H/O section x3 Bilateral salpingectomy with oophorectomy Tobacco Smoking/Tobacco Use Status: Never Passive smoking exposure: No Alcohol Alcohol Intake: never Substance Use Substance use: Never Substance use type: does not use Prental History History 4 Para 3 Hx # Term Pregnancies 3 Multiple births Hx # Pregnancies Ectopic pregnancies AB induced 1 Hx Number of Living Children AB spontaneous Past Pregnancies Del. Date GA/Weeks # Preg Succ Route Wgt Sex Labor Lgth Anesthesia Location Prov Compl 05/05/88 43 Yes Female [facility] 09/12/92 40 Male [facility] 03/09/97 38 Female [facility] Delivery Date: 05/05/88 Last Updated by: Arabella Freedman Delivery Date: 09/12/92 Last Updated by: Arabella Hendricks Delivery Date: 03/09/97 Last Updated by: Arabella Savage Vital Signs and Lab Results Vital Signs Most Recent Vital Signs in EMR: Most Recent Vital Signs Temp Pulse Resp BP Pulse Ox 36.5 C 78 18 133/78 99 07/18/25 11:45 07/18/25 11:45 07/18/25 11:45 07/18/25 11:45 07/18/25 11:45 Anesthesia Assessment and Plan Anesthesia History Personal History: No History of Anesthesia Complications Family History: No Family History of Anesthesia Complications Exercise Tolerance Exercise Tolerance: Metabolic Equivalents>4 Pertinent Negatives Pertinent Negatives: No Symptoms of GERD Cardiac & Pulmonary Exam Cardiac Exam: Normal S1/S2 Heart Sounds Pulmonary Exam: Clear Bilateral Breath Sounds Implantable Cardiac Device Does patient have a Pacemaker or an ICD?: No Airway Exam Known Difficult Airway: No Mallampati Class: 1 Mouth Opening: Normal (> 3cm) Thyromental Distance: Greater than 3 cm Neck Range of Motion: Full ROM Neck Circumference: Normal Teeth Condition: Normal Dentition ASA Classification ASA Score: ASA 2 Emergency Case?: No NPO Status NPO Status: NPO Clears >2 hours, Solids >8 hours Anesthesia Plan Resuscitation Status: Full Code Anesthesia Technique: General Anesthesia Airway Planned: Endotracheal Tube Monitors Used: Standard Monitors and SedLine
--- NOTE | 2025-07-18 13:01 | ROE_ITS ---
Operative Note Operative Note PRE-OP DIAGNOSIS: positive superior and inferior margins of right breast lumpectomy cavity POST-OP DIAGNOSIS: same PROCEDURE: Right breast reexcision of superior and inferior lumpectomy margins. SURGEON: Margarette Goldstein ORACLE FUSION MIDDLEWARE DEVELOPER: Juan Cheung ANESTHESIA TYPE: Local By Surgeon and General LMA/ETT Refer to Anesthesia Record ESTIMATED BLOOD LOSS: 20 PATHOLOGY: other (1. additional superior margin of right breast (long stitch lateral, short stitch anterior, double stitch superior). 2. Additional inferior margin of right breast (long stitch lateral, short stitch anterior, double stitch superior).) Procedure Description: This is a 69-year-old female with known right breast cancer. 2 weeks ago she underwent a right lumpectomy with sentinel lymph node biopsy, and the pathology showed focally positive superior margin with DCIS involvement and a focally positive inferior margin with invasive carcinoma involvement. Repeat excision of those margins is indicated. We discussed the procedure and the expected risks and benefits and alternatives and expectations. Additional pathological findings and additional margin surgery was explained to her as a possibility as we learn more about the breast cancer through pathology. Informed consent was obtained and she was taken to the operating room. She was placed supine on the operating table. SCDs were placed and all pressure points were padded appropriately. General anesthesia was induced. The right breast was prepped and draped in the usual sterile fashion. Timeout was performed. Local anesthetic was infiltrated into the skin and breast tissue of the previous lumpectomy site. The lumpectomy scar was opened sharply with a 15 blade scalpel and blunt dissection down to the lumpectomy cavity was done with a tonsil clamp. The cavity was opened and seroma fluid suctioned clean. Cautery was used to open the cavity completely. The cavity was well-defined. Previously placed surgical clips were noted at the superior margin of the cavity. The superior margin was reexcised using forceps and cautery. Bleeding was encountered at this margin and it was controlled with 3-0 Vicryl's suture ligature. Surgical clips were placed to mariluz the superior border of the cavity. The specimen was oriented with marking sutures and passed off the field. The inferior margin was then approached in a similar fashion. The margin was removed with cautery and forceps, and suture markings were placed to orient the specimen. Surgical clips were placed at the inferior margin to mariluz it for radiation. The cavity was irrigated clean and examined for hemostasis. The remainder of the local anesthetic was infiltrated into the breast tissue. The cavity was closed using 5 interrupted 3-0 Vicryl sutures. The skin was then closed with 4-0 Monocryl interrupted subcuticular sutures. The skin was washed and dried. Steri-Strips were applied. All sponge and instrument counts were correct at the end of the case. The patient tolerated the procedure well. She extubated in the operating room and transferred to the recovery room in stable condition. No complications. Date of Procedure: 07/18/25
--- NOTE | 2025-07-18 13:20 | BREAST_PTH ---
PATIENT: Cassandra Vargas LOC: [facility] U#:[id number] AGE/SX: 69/F ROOM: RE07/18/[address]: Margarette Goldstein MD : 1955 BED: DIS: 07/18/2025 SPEC #: [id number] RECD: 07/18/25 17:52 STATUS: PATTY REKali #: [id number] COLLIN: 07/18/25 13:[address]: Margarette Goldstein DEPT: Surgical Specimen RECD BY: Joselyn Gracia ENTERED: 07/18/25 17:56 SP TYPE: Breast OTHR DR: Tatyana Flores Tissues: 1 - BREAST INCISION/EXCISION 2 - BREAST INCISION/EXCISION Procedures: GROSS AND MICRO LEVEL 5 Comments: [id number]
[2025-07-18] MEDS: Bupivacaine 0.5% Pres-Free W/EPI 30 ML VIAL (13:45)
--- NOTE | 2025-07-18 15:39 | W.ANESPOSTOP ---
Postoperative Evaluation Date, Time and Location Date Performed: 07/18/25 Time Performed: 15:39 Patient Location: Day Surgery Unit Vital Signs Most Recent Imported Vital Signs: Most Recent Vital Signs Temp Pulse Resp BP Pulse Ox 36 C L 70 18 100/50 L 100 07/18/25 14:52 07/18/25 14:52 07/18/25 14:52 07/18/25 14:52 07/18/25 14:52 Pain Score Most Recent Pain Score: Most Recent Pain Score Pain Level 0 07/18/25 14:34 Assessment Mental Status: Awake (Alert & Oriented to Patient Baseline) Airway and Respiratory Function: Patent airway with normal (patient baseline) respiratory exam Cardiovascular Function: Hemodynamically Stable Hydration Status: Adequately Hydrated Nausea & Vomiting: No Nausea or Vomiting Pain: Pt. Denies Any Pain Peripheral Nerve Block: Patient did not receive a nerve block
== END 2025-07-18 15:50 | disposition home or self-care (01) ==
PROVIDERS: PCP Nurse Practitioner Family; Visit Provider Surgery
PROC: (CPT 19120; principal; 2025-07-18 12:30)
DX: C50.811 Malignant neoplasm of overlapping sites of right female breast (principal); Z19.1 Hormone sensitive malignancy status; G35 Multiple sclerosis; N39.46 Mixed incontinence; E08.65 Diabetes mellitus due to underlying condition with hyperglycemia
CPT/HCPCS: 19301; 88307; J0131; J0690; J1100; J1885; J2003; J2405; J2704; J3010

== ENCOUNTER 2025-08-26 02:56 | Outpatient (CLI) | payer BC, SELFPAY ==
[2025-08-26 12:51] LABS: Abs Immature Grans 0.02 10^3/uL (0.0-0.06); HCT 42.9 % (36.0-46.0); HGB 14.7 g/dL (11.2-15.7); Immature Grans % 0.3 %; MCH 30.2 pg (27.0-33.0); MCHC 34.3 % (32.0-36.0); MCV 88 fL (80-95); MPV 10.0 fL (8.0-11.0); Platelet Count 227 10^3/uL (130-400); RBC 4.86 10^6/uL (3.93-5.22); RDW 13.1 % (11.7-14.6); RDW-SD 42.3 fL; WBC 7.54 10^3/uL (4.4-10.8)
[2025-08-26 13:31] LABS: ALT 26 U/L (14-59); AST 6 U/L (15-37); Albumin 3.7 g/dL (3.4-5.0); Alkaline Phosphatase 74 U/L (46-116); Anion Gap 9.4 mmol/L (3-11); BUN 14 mg/dL (7-18); Bilirubin, Total 0.4 mg/dL (0.2-1.0); CO2 25.6 mmol/L (21.0-32.0); Calcium 8.8 mg/dL (8.5-10.1); Chloride 102 mmol/L (98-107); Glucose 366 mg/dL (74-106); Magnesium 1.9 mg/dL (1.8-2.4); Potassium 4.0 mmol/L (3.5-5.1); Sodium 137 mmol/L (136-145); Total Protein 7.2 g/dL (6.4-8.2); Vitamin D 25 Total 29 ng/mL (30-100)
== END 2025-08-26 02:57 | disposition home or self-care (01) ==
LOC: LBO 02:56
PROVIDERS: PCP Nurse Practitioner Family; Visit Provider Nurse Practitioner Family
DX: C50.411 Malignant neoplasm of upper-outer quadrant of right female breast (principal); Z17.0 Estrogen receptor positive status [ER+]
CPT/HCPCS: 36415; 80053; 82306; 83735; 85025

== ENCOUNTER → 2025-10-07 00:02 | Outpatient (CLI) | payer BC, MEDICARE, SELFPAY ==
--- NOTE | 2025-10-07 14:32 | DI.DEXA_ITS ---
Exam(s) XR DEXA BONE DENSITY W/WO NITISH EXAM: XR DEXA BONE DENSITY W/WO NITISH CLINICAL HISTORY: BREAST CANCER, PLAN TO START AROMATASE INHIBITOR, C50.411, Z17.0 TECHNIQUE: [employer] C densitometer analysis of left hip, lumbar spine and left forearm. Lateral survey image of the thoracic and lumbar spine. COMPARISON: No exams were available for comparison FINDINGS: Lateral view of the thoracic and lumbar spine shows no evidence of compression fractures. Bone mineral density measurements of the lumbar spine correspond to a total T- score of -0.2, in the normal range. Bone mineral density measurements of the left hip correspond to a total T-score of 0.1. The femoral neck T-score is -2.0, in the osteopenic range. Theleft forearm bone mineral density measurements correspond to a T-score of the distal 3rd of -0.8, in the normal range.. IMPRESSION: Overall normal bone mineral density. Osteopenia of the femoral neck region.
== END ==
LOC: DI 00:02
PROVIDERS: PCP Nurse Practitioner Family; Visit Provider Nurse Practitioner Family
DX: C50.411 Malignant neoplasm of upper-outer quadrant of right female breast (principal); Z17.0 Estrogen receptor positive status [ER+]
CPT/HCPCS: 77080

== ENCOUNTER → 2025-10-19 14:51 | Outpatient (CLI) | payer BC, SELFPAY ==
--- NOTE | 2025-10-19 15:31 | DI.MAMMO_ITS ---
Exam(s) US BREAST LT LIMITED MG MAMMO SCREENING 60 MIN DUR EXAM: MG MAMMO SCREENING 60 MIN DUR CLINICAL HISTORY: breast cancer screening, Z12.31. TECHNIQUE: Full field and craniocaudal and mediolateral oblique spot compression digital Mammography views of the leftbreast with Tomosynthesis and left breast ultrasound. COMPARISON: 2022 and 2023 FINDINGS: Mammography/Tomosynthesis: Masses: There is a circumscribed nodule in the subareolar region lateral and superior to the nipple. This appears unchanged from prior exams. Architectural Distortion: None seen. Microcalcifictions: No suspicious pleomorphic-type are seen. Skin Thickening/Nipple Retraction: None. Left breast US: Echotexture: Normal appearance of the glandular tissue. Shadowing: No suspicious foci. Cyst: Circumscribed hypoechoic nodule in the 12-1 o'clock position measuring 7 x 5 by 7 millimeters. Findings are consistent with a proteinaceous cyst versus lymph node. Solid lesions: None seen. Ductal dilation: None. IMPRESSION: 1. No evidence of malignancy is noted. 2. Unless there is more urgent need, follow-up screening mammography is recommended, as per [employer] [employer] guidelines. 3. The findings were discussed with the patient on the date of the examination. BI-RADS Category 2 - Benign Findings Breast Density - Category A - The breast are almost entirely fatty. Breast density Category C or D implies that the patient has dense breast tissue. Dense breast tissue can make it harder to find cancer on a mammogram. Dense breast tissue is also associated with an increased risk of breast cancer. This information about the result of the mammogram report was provided to the patient to raise their awareness. Use this report when you speak with the patient about their risks for breast cancer, which includes their family history. At that time, you may recommend additional screening tests (Ultrasound or MRI) as these tests may add significant information. A negative radiographic report should not delay biopsy if a dominant or clinically suspicious mass is present. Up to ten percent of cancers are not identified on mammography. A negative report may reinforce clinical impression. Adenosis and dense breasts may obscure an underlying neoplasm. False positive reports average 6 to 10%. Patient will receive a letter notifying them of these results.
== END ==
LOC: DI 14:51
PROVIDERS: PCP Nurse Practitioner Family; Visit Provider Surgery
DX: Z12.31 Encounter for screening mammogram for malignant neoplasm of breast (principal)
CPT/HCPCS: 76642; 77063; 77067